=== PATIENT | female | born 1940 | race Caucasian/White ===

== ENCOUNTER 2024-02-21 18:08 | Emergency (ER) | payer OTHER, SELFPAY ==
--- NOTE | 2024-02-21 19:46 | ED.GENMED ---
History of Present Illness
General
Chief Complaint: Musculo-Skeletal Complaint
Source: patient
Exam Limitations: none
Time Seen by Provider: 02/21/24 18:38
Nursing documentation reviewed up to this point in time: agreed with
History of Present Illness
History of Present Illness:
Patient is an 83-year-old female presents to the emergency department with left ankle pain and low back pain after tripping on a hoses 3 days ago and inverting her left ankle. Patient states she has been walking on it but it has been painful.
Patient denies any numbness or paresthesias or radiation of pain. Patient is to see her back physician for injections tomorrow. Patient has had previous back surgery. Patient denies any previous
Past History
Past History
ED Past Medical History: GERD, Other (Brachial plexus neuropathy ) and Other (previous cholecystectomy, gallstone pancreatitis, chronic right brachial plexopathy, GERD)
ED Past Surgical History: Cholecystectomy, Orthopedic (Cervical and lumbar disc at the infusion, cholecystectomy ) and Other (Left hip replacement, right knee replacement x3 per ); Negative Appendectomy
Social History
Tobacco: Non-smoker
Alcohol: Occasional
Drug: None
Personal: Other (Noncontributory )
Living: with family
Employment: Employed
Family History
Family History: Negative Diabetes, Hypertension, Early CAD, Asthma or Cancer
Review of Systems
Review of Systems
All Other Systems: Not applicable
Phy Exam
Physical Exam
Physical Exam:
Physical Exam
General: mild distress, alert and appropriate, well nourished, well hydrated
HENT: Normocephalic, supple
Eyes: Clear sclera, conjuctiva without injection
Neuro: Alert and oriented x 3, CN II - XII intact, no motor focality, no cerebellar dysfunction
Skin: no rash
Psychiatric: well kept. interactive and cooperative
Extremities: No cyanosis. Good and equal peripheral pulses. Left ankle with swelling on the lateral aspect mildly. Pain with stress testing but no laxity. Achilles intact. Left foot mildly swollen but no bony tenderness
or deformity. Left knee nontender.
Musculoskeletal: Minimal lower lumbar tenderness but neurologically intact
Course
Orders/Labs/Results
Orders:
Orders
02/21/24 18:17
Ankle, left 3 view CR [CR Ankle - Left Min 3 Views ] Urgent
Comment:
Reason For Exam: pain injury
02/21/24 18:27
Lumbar Spine, 2 or 3 View [CR Lumbar Spine 2 Or 3 Views] Urgent
Comment:
Reason For Exam: pain injury
02/21/24 19:45
Donald Wrap Left-Treatment ONCE
Air Splint Left-Treatment ONCE
Oxycodone/Acetaminophen [Percocet 5/325] 1 tablet PO NOW STA
Vital Signs
Initial and Last Documented VS:
Initial Vital Signs
Pulse Resp BP Pulse Ox
85 16 148/44 97
02/21/24 19:54 02/21/24 19:54 02/21/24 19:54 02/21/24 19:54
Last Documented Vital Signs
Pulse Resp BP Pulse Ox
85 16 148/44 97
02/21/24 19:54 02/21/24 19:54 02/21/24 19:54 02/21/24 19:54
*Radiology
Radiology exam reviewed: radiology read reviewed
*Pulse Oximetry
Patient hypoxic: no
*EKG
Interpreted by ED Provider?: NA
*Associate Attorney Interpretation
Rate: Associate Attorney- N/A
*Critical Care Note
Total Time (30-74mins, 75-104mins- exclusive of procedures): Not Applicable
ED Attending Note
-
Portions of this chart may have been created with voice recognition software.� Occasional wrong word or��sound alike� substitutions may have occurred due to the inherent limitations of voice recognition software.
Discharge Plan
Departure
Patient Disposition: Home (Routine Discharge)
Date of Disposition: 02/21/24
Time of Disposition: 19:46
Patient with high blood pressure during this ER visit?: No
Condition: Fair
Discharge Problem:
Left ankle sprain, Lumbar strain
Instructions: Back Muscle Strain (DC), Ankle Sprain ED, RICE Therapy
Prescriptions:
New
oxycodone 5 mg tablet
5 mg PO Q4H PRN (Reason: Pain) Qty: 15 0RF
No Action
esomeprazole magnesium [Nexium] 20 MG capsule,delayed release(DR/EC)
20 mg PO DAILY
prednisone 5 mg tablet
2.5 mg PO DAILY
amlodipine 5 mg tablet
5 mg PO BID
gabapentin [Neurontin] 800 mg tablet
800 mg PO TID
trazodone 100 mg tablet
100 mg PO HS
ursodiol 300 mg capsule
300 mg PO BID
cyclosporine 0.05 % dropperette
1 drp BOTH EYES Q12H
apixaban 5 mg Tablet
5 mg PO BID
oxycodone [OxyContin] 10 mg tablet,oral only,ext.rel.12 hr
10 mg PO Q8H
Patient Comments:
03/16/2022: last filled 02/24/22, 90 tabs for 30 days [facility]
oxycodone 10 mg tablet
10 mg PO DAILY PRN (Reason: breakthrough pain)
Patient Comments:
03/16/2022: last filled 02/24/22, 30 tabs for 30 days from [facility]
ceftriaxone 2 gram Recon Soln
2,000 mg IV Q24H 7 Days Qty: 14 0RF
Lactobac/Bifidobac [Visbiome]
1 cap PO DAILY 14 Days Qty: 14 0RF
Referrals:
Carlos Eduardo Mena MD [Active] - Follow up in 1 week
Isidoro Marrufo MD [Family Provider] -
Activity Restrictions/Additional Instructions:
Keep appointment with your physician for your back
Discharge Date and Time
Print Language: LUXEMBOURGISH
[2024-02-21 19:54] VITALS: BP 148/44
[2024-02-21] MEDS: PERCOCET 5/325 1 TABLET PO (20:04)
== END 2024-02-21 20:48 | disposition home or self-care (01) ==
LOC: EMR 18:08
PROVIDERS: EMERGENCY PHYSICIAN Emergency Medicine; FAMILY PHYSICIAN Internal Medicine
DX: S93.402A Sprain of unspecified ligament of left ankle, initial encounter (principal); S39.012A Strain of muscle, fascia and tendon of lower back, initial encounter; W18.40XA Slipping, tripping and stumbling without falling, unspecified, initial encounter
CPT/HCPCS: 99283; 72100; 73610

== ENCOUNTER 2025-04-07 21:24 | Observation (INO) | payer OTHER, SELFPAY ==
[2025-04-07] VITALS (7 sets, daily range): BP systolic 93–113; BP diastolic 40–59; BMI 23.9; BMI 24.5
--- NOTE | 2025-04-07 18:15 | ED.GENMED ---
History of Present Illness
General
Chief Complaint: Chest Pain
Source: patient
Exam Limitations: none
Time Seen by Provider: 04/07/25 18:00
History of Present Illness
History of Present Illness:
See MDM
Past History
Past History
ED Past Medical History: GERD, Other (Brachial plexus neuropathy ) and Other (previous cholecystectomy, gallstone pancreatitis, chronic right brachial plexopathy, GERD)
ED Past Surgical History: Cholecystectomy, Orthopedic and Other
Social History
Tobacco: Non-smoker
Alcohol: Occasional
Drug: None
Personal: Other (Noncontributory )
Living: with family
Employment: Employed
Family History
Family History: Negative Diabetes, Hypertension, Early CAD, Asthma or Cancer
Phy Exam
Physical Exam
Physical Exam:
See MDM
Scores
Heart Score for Chest Pain Patients
STEMI patient?: No
History: Slightly or Non-Suspicious
ECG: Nonspecific Repolarization
Age: >/= 65 years
Risk Factors: 1 or 2 Risk Factors
Troponin: </= Normal Limit
Heart Score for Chest Pain Patients: 4
Heart Score Risk: 20.3% MACE over next 6 weeks
Course
Orders/Labs/Results
Orders:
Orders
04/07/25 17:34
EKG [Electrocardiogram (*1)] Urgent
Reason for Study: Chest Pain
EKG- Treatment ONCE
04/07/25 18:15
0.9% Sodium Chloride 1000 ml [Nss] 1,000 ml IV BOLUS
04/07/25 19:28
Complete Blood Count/With Diff Urgent
Comprehensive Metabolic Panel Urgent
Troponin I Urgent
Abnormal Lab Results
04/07/25
19:28
RBC 3.43 L 10^6/uL
(4.20-5.40)
Hgb 10.3 L g/dL
(12.0-16.0)
Hct 30.5 L %
(37.0-47.0)
Absolute Monos (auto) 0.8 H 10^3/uL
(0.1-0.6)
Lymphocytes % 19.4 L %
(20.5-51.1)
Sodium 129 L mmol/L
(135-145)
Chloride 95 L mmol/L
(98-107)
BUN 30 H mg/dl
(7-17)
Creatinine 1.2 H mg/dL
(0.6-1.0)
04/07/25 19:28
04/07/25 19:28
Vital Signs
Initial and Last Documented VS:
Initial Vital Signs
Temp Pulse Resp BP Pulse Ox
98.4 F 94 18 93/49 98
04/07/25 17:35 04/07/25 17:35 04/07/25 17:35 04/07/25 17:35 04/07/25 17:35
Last Documented Vital Signs
Temp Pulse Resp BP Pulse Ox
98.4 F 75 15 106/54 98
04/07/25 17:35 04/07/25 18:02 04/07/25 18:02 04/07/25 18:01 04/07/25 18:19
MDM/Problems Addressed
Differential Diagnosis Includes:
Note:
CHIEF COMPLAINT(S)
Dyspnea and palpitations.
HISTORY OF PRESENT ILLNESS
The patient is an 84-year-old female with a known history of atrial fibrillation. She reports experiencing shortness of breath and palpitations last week. During the episode, her pulse was noted to be elevated at 135 beats per minute. Under the
advice of her valve pipe irrigator, Dr. Vincent, she was placed on 12.5 mg of metoprolol and flecainide. This morning, her pulse was observed at 108 beats per minute. The patient has a history of paroxysmal atrial fibrillation, which she believes began
following the Moderna vaccine. The patient was recently admitted to [facility] due to a knee cap fracture after a fall. Despite her discharge, she currently experiences episodes of feeling weak and dizzy, potentially due to intermittent
atrial fibrillation and related symptoms. The discussion with the valve pipe irrigator regarding ablation was mentioned.
PAST MEDICAL AND SURGICAL HISTORY
Atrial fibrillation; knee cap fracture.
ADDITIONAL HISTORY OBTAINED FROM SOURCE OTHER THAN PATIENT
Family members mentioned logistics regarding Dr. Vincent.
EXTERNAL RECORDS REVIEWED
Recent admission to [facility] for a knee cap fracture.
CHRONIC MEDICAL CONDITIONS SIGNIFICANTLY AFFECTING CARE
Chronic conditions affecting care include atrial fibrillation.
PHYSICAL EXAM
General: Alert, no acute distress.
Skin: Warm, dry.
Head: Normocephalic, atraumatic
Neck: Appears supple, trachea midline.
Eyes, Ears, Nose, Mouth, and Throat: Moist mucous membranes. Old bruising noted around right orbit
Cardiovascular: No signs of cyanosis. Irregular rhythm
Respiratory: Respirations are non-labored.
Abdomen: Non-distended
Musculoskeletal: right leg in knee immobilizer
Neurological: No focal neurological deficit observed.
Psychiatric: Cooperative, appropriate mood and affect.
DIFFERENTIAL DIAGNOSIS
The Differential Diagnosis includes, in no particular order and is not limited to:
- Atrial fibrillation with rapid ventricular response
- Reactive airway disease
- Heart failure
- Myocardial ischemia
- Pulmonary embolism
- Aortic stenosis
- Anemia
- Electrolyte imbalance
- Infection
- Anxiety
SUMMARY OF ENCOUNTER
The patient presented with dyspnea and palpitations and a known history of atrial fibrillation. Recent history includes an elevated heart rate and fall resulting in a knee fracture. The consideration of adverse effects related to the Moderna vaccine
was discussed. The decision was made to admit her for observation due to concerns about possible recurrent episodes of atrial fibrillation, and to coordinate care with the cardiology team.
DISPOSITION
Admit
ASSESSMENT
The patient is experiencing symptoms consistent with possible intermittent atrial fibrillation and palpitations, with a recent fall-related injury. Management involves inpatient observation to allow cardiac monitoring and potential intervention if
needed.
PLAN
Admit for overnight observation; coordinate with cardiology team for evaluation and potential management adjustments.
MEDICAL DECISION MAKING
- Complexity of Problems Addressed: Chronic conditions affecting care include atrial fibrillation.
- DDx: Atrial fibrillation with rapid ventricular response, reactive airway disease, heart failure, myocardial ischemia, pulmonary embolism, aortic stenosis, anemia, electrolyte imbalance, infection, anxiety.
- Data:
- Category 1: Clinical information provided through objective findings of pulse rate and discussion of recent hospital visit for knee fracture.
- Category 2: My independent interpretation of the patients clinical condition involving historical input from family and valve pipe irrigator discussion.
- Risk:
- Prescription drug management involves the patients ongoing metoprolol and flecainide.
- Consideration of admission for monitoring due to atrial fibrillation episodes and fall risk assessment.
EKG
My independent EKG interpretation is:
- Rhythm: Atrial Fibrillation
- Heart Rate: 89 beats per minute
- [place]: Normal
- ST Segment: No elevation noted
- Intervals: Appear to be within normal limits
SUMMARY OF ENCOUNTER
Patient presented with complaints likely related to episodes of atrial fibrillation with rapid ventricular response (AFib with RVR). The patient reported generalized weakness, fatigue, and frequent falls. Given her prior history and current
symptoms, it was decided to admit her for telemetry monitoring and further evaluation.
DISPOSITION
Admit
ASSESSMENT
The patient is experiencing probable intermittent episodes of atrial fibrillation with rapid ventricular response, contributing to her generalized weakness and frequent falls.
PLAN
Admit the patient for telemetry monitoring and further workup to evaluate and manage potential recurrent atrial fibrillation episodes.
MEDICAL DECISION MAKING
-Complexity of Problems Addressed: Chronic conditions affecting care include atrial fibrillation. Differential diagnosis includes atrial fibrillation with rapid ventricular response, reactive airway disease, heart failure, myocardial ischemia,
pulmonary embolism, aortic stenosis, anemia, electrolyte imbalance, infection, and anxiety.
-Data:
Category 1: My independent interpretation of the EKG indicates atrial fibrillation with a heart rate of 89 beats per minute, normal axis, no ST segment elevation, and intervals within normal limits.
Category 2: Clinical information was obtained from an independent historian as mentioned by family members.
Category 3: Discussion of management with cardiology team regarding potential need for admission and treatment adjustment.
-Risk: Prescription drug management with ongoing metoprolol and flecainide, and the decision to escalate care with admission for monitoring due to the risk of recurrent atrial fibrillation and fall risk.
DIAGNOSIS
- Atrial Fibrillation with Rapid Ventricular Response (ICD-10: I48.91)
- Generalized Weakness (ICD-10: R53.1)
- Frequent Falls (ICD-10: R29.6)
*Pulse Oximetry
SaO2: 98
Oxygen Mode of Delivery: Room air
Patient hypoxic: no
*Critical Care Note
Total Time (30-74mins, 75-104mins- exclusive of procedures): Not Applicable
ED Attending Note
-
Portions of this chart may have been created with voice recognition software.� Occasional wrong word or��sound alike� substitutions may have occurred due to the inherent limitations of voice recognition software.
Discharge Plan
Departure
Patient Disposition: Admit
Date of Disposition: 04/07/25
Time of Disposition: 20:02
Admit to: Telemetry
Presentation/result/management discussed w/ accepting MD/DO: Hospitalist
Discharge Problem:
Heart palpitations, Weakness
Prescriptions:
No Action
esomeprazole magnesium [Nexium] 20 MG capsule,delayed release(DR/EC)
20 mg PO DAILY
prednisone 5 mg tablet
2.5 mg PO DAILY
amlodipine 5 mg tablet
5 mg PO BID
gabapentin [Neurontin] 800 mg tablet
800 mg PO TID
trazodone 100 mg tablet
100 mg PO HS
ursodiol 300 mg capsule
300 mg PO BID
cyclosporine 0.05 % dropperette
1 drp BOTH EYES Q12H
apixaban 5 mg Tablet
5 mg PO BID
oxycodone [OxyContin] 10 mg tablet,oral only,ext.rel.12 hr
10 mg PO Q8H
Patient Comments:
03/16/2022: last filled 02/24/22, 90 tabs for 30 days from [facility]
oxycodone 10 mg tablet
10 mg PO DAILY PRN (Reason: breakthrough pain)
Patient Comments:
03/16/2022: last filled 02/24/22, 30 tabs for 30 days from [facility]
ceftriaxone 2 gram Recon Soln
2,000 mg IV Q24H 7 Days Qty: 14 0RF
Lactobac/Bifidobac [Visbiome]
1 cap PO DAILY 14 Days Qty: 14 0RF
oxycodone 5 mg tablet
5 mg PO Q4H PRN (Reason: Pain) Qty: 15 0RF
metoprolol succinate 25 mg tablet extended release 24 hr
12.5 mg PO DAILY Qty: 15 0RF
Referrals:
NONE,* [Family Provider, Internal Medicine]
Interventions
Interventions:
*Risk Screen - Suicide Last Done: 04/07/25 17:35
*General Assessment Last Done: 04/07/25 17:35
*Neglect/Abuse Screening Last Done: 04/07/25 17:35
*ED COVID-19 Vaccine History Last Done: 04/07/25 17:35
*ED Influenza Vaccine History Last Done: 04/07/25 17:35
Discharge Date and Time
Print Language: TAMAZIGHT
[2025-04-07] MEDS: NSS 1000 IV (19:29)
[2025-04-07 19:40] LABS: Hematocrit 30.5 % (37.0-47.0); Hemoglobin 10.3 g/dL (12.0-16.0); Mean Corp Hgb Conc. 33.8 g/dL (33.0-37.0); Mean Corpuscular Volume 88.9 fL (81.0-99.0); Nucleated Red Blood Cells % 0 %; Platelet Count 236 10^3/uL (130-400); Red Cell Dist. Width 13.2 % (11.5-14.5)
[2025-04-07 19:53] LABS: ALT (SGPT) 21 U/L (0-35); AST (SGOT) 24 U/L (14-36); Albumin 4.2 g/dl (3.5-5.0); Alkaline Phosphatase 81 U/L (38-126); Blood Urea Nitrogen 30 mg/dl (7-17); Calcium 9.4 mg/dl (8.4-10.2); Carbon Dioxide 29 mmol/L (22-30); Chloride 95 mmol/L (98-107); Estimated Creatinine Clearance 31 ml/min; Glucose 97 mg/dl (70-99); Potassium 4.4 mmol/L (3.5-5.1); Sodium 129 mmol/L (135-145); Total Protein 6.9 g/dl (6.3-8.2); eGFR 44.91
[2025-04-07 20:03] LABS: Troponin I 0.017 ng/ml
--- NOTE | 2025-04-07 20:04 | HPS.HSE ---
Addendum entered and electronically signed by NETO Don 04/07/25 23:46:
correction, pain and immobilizer on right knee not left knee
Original Note:
Family Physician
-
Family Physician: * NONE
Chief Complaint
-
chest pain, tachycardia and dyspnea
History of Present Illness
Patient is a 84-year-old female with past medical history significant for hypertension, paroxysmal atrial fibrillation and chronic pain syndrome who presented to [facility] ED for evaluation of chest pain, tachycardia and dyspnea intermittently since last
night. Patient reports she was tachycardic in the 130s last night when she was instructed to take PRN flecainide and metoprolol and to repeat in AM if HR > 100. Patient took medication both last night and this morning and when her therapist arrived
her HR was > 110. Call was made to data governance analyst and primary care who both instructed her to go the ED for evaluation and treatment. Patient denies any recent fever, chills, cough, vomiting, constipation or diarrhea. Recent hospitalization at [facility] for
fall with fractured left patella, she reports being discharged to home a day ago and while in patient had a difficult time urinating.
Medical History
Past Medical History
Past Medical History: Reports Other
Additional Past Medical History:
Chronic Pain Syndrome
Erosive Osteoarthritis
Right Brachial Plexopathy
Lumbar DDD
Paroxysmal Atrial Fibrillation
Lung Cancer s/p Proton Therapy
Hypertension
Past Surgical History: Reports Other
Additional Past Surgical History:
Left RASHID
Right TKA
Cervical Fusion
Lumbar Fusion
PVI Ablation
appendectomy
cholecystectomy
cardiac ablation
Social History
Tobacco: Non-smoker
Alcohol: Occasional
Drug: None
Personal:
Living: With Family
Family History
Family History: Other (Mother: Pancreatic Cancer Brother: Lung Cancer Father: Premature CAD ( at 50yo))
Allergies / Home Medications
Allergies reflects when Allergies were last updated in [employer].
Home Medications with original date entered in [employer]
Allergy/Medication List:
Allergies
Allergy/AdvReac Type Severity Reaction Status Date / Time
amoxicillin Allergy Rash Verified 04/07/25 17:38
morphine (Morphine) Allergy Anaphylaxis Verified 04/07/25 17:38
pentazocine lactate (From Allergy Unknown Verified 04/07/25 17:38
[place])
Home Medications
apixaban 5 mg tablet 5 mg PO BID Blood clot prevention/tx 03/16/22
gabapentin 800 mg tablet (Neurontin) 800 mg PO TID Neurological Condition 03/16/22
oxycodone 10 mg tablet,crush resistant,extended release 12 hr (OxyContin) 10 mg PO Q8H Pain 03/16/22
trazodone 100 mg tablet 150 mg PO HS Sleep 03/16/22
ursodiol 300 mg capsule 300 mg PO BID GALLSTONE 03/16/22
colchicine 0.6 mg tablet 0.6 mg PO NOON 04/07/25
flecainide 100 mg tablet 100 mg PO Q12H PRN HR > 100 04/07/25
metoprolol succinate 25 mg tablet,extended release 24 hr 12.5 mg PO DAILY PRN HR > 100 04/07/25
oxycodone 5 mg tablet 5 mg PO Q4H PRN Moderate Pain 04/07/25
oxycodone 7.5 mg tablet,oral ONLY (not for feeding tubes) 7.5 mg PO Q4H PRN severe pain 04/07/25
tizanidine 4 mg tablet 4 mg PO HS 04/07/25
valsartan 160 mg-hydrochlorothiazide 25 mg tablet 1 tab PO DAILY 04/07/25
Review of Systems
-
History Source: Patient
Constitutional: Denies Fever or Chills
EENT: Denies Sore Throat
Respiratory: Reports Trouble Breathing (shortness of breath, intermittent with tachycardia ); Denies Cough or Hemoptysis
Cardiac: Reports Chest Pain and Palpitations; Denies Diaphoresis or Syncope
Abdomen/GI: Reports Nausea; Denies Abdominal Pain, Vomiting, Diarrhea or Constipated
: Reports Difficulty Voiding; Denies Dysuria, Frequency or Urgency
Musculoskeletal: Reports Joint Pain (left knee pain )
Skin: Denies Rash
Neurological: Reports Weakness; Denies Dizzy, Headache or Numbness
Endocrine: Denies Polyuria or Polydipsia
Physical Exam
Vital Signs
Vital Signs
Temp Pulse Resp BP Pulse Ox
98.4 F 75 15 106/54 98
04/07/25 17:35 04/07/25 18:02 04/07/25 18:02 04/07/25 18:01 04/07/25 18:19
Physical Exam
General: Well Developed, Well Nourished, No Apparent Distress, Comfortable and Conversant
HEENT: NormoCephalic, PERRLA, Nose Appears Normal and Ears Appear Normal
Respiratory: Clear and Non Labored Respirations; No Wheezes, Rales or Rhonchi
Cardiac: Irregular Rhythm and Tachycardia; No Murmur, Rub, Gallop or Peripheral Edema
GI: Soft, Non Tender, Non Distended and Normal Bowel Sounds
Musculoskeletal: No Clubbing, No Cyanosis and No Edema
Skin: IV/Catheter Site
Neuro: Awake, AO x 3 and Nonfocal/grossly intact
Psych: Calm and Intact Judgment/Insight
Laboratory Results
-
04/07/25 19:28
04/07/25 19:
Laboratory Results
Total Bilirubin 0.7 mg/dl (0.2-1.3) 04/07/25 19:
AST 24 U/L (14-36) 04/07/25 19:
ALT 21 U/L (0-35) 04/07/25 19:
Alkaline Phosphatase 81 U/L (38-126) 04/07/25 19
Troponin I 0.017 ng/ml 04/07/25 19:28
Data Reviewed
-
Medical Tests (Nuc Med, Echo, EKG etc): Report Reviewed by me (EKG: ATRIAL FIBRILLATION)
Lab Data: Labs Reviewed by me (hgb 10.3, hct 30.5, Na 129, Chloride 95, BUN 30, Creat 1.2, Est CrCl 31, eGFR 44.91)
Impression/Plan
-
IMPRESSION/PLAN:
#chest pain, tachycardia and shortness of breath 2/2 NSTEMI
#Paroxysmal Atrial Fibrillation
chest pain, tachycardia and shortness of breath intermittent since last evening
Hx cardiac ablation
hgb 10.3, hct 30.5, trop 0.017
EKG: ATRIAL FIBRILLATION
- Admit to telemetry
- Consult cardiology
- continue Eliquis
- change metoprolol from PRN to daily
- continue flecainide
#acute kidney injury
patient reports difficulty urinating this past week while hospitalized at [facility]
Na 129, Chloride 95, BUN 30, Creat 1.2, Est CrCl 31, eGFR 44.91
- IVF given in ED
- monitor BMP
#Hypertension
- continue valsartan-HCTZ hold for SBP <110
#Chronic Pain Syndrome
#Erosive Osteoarthritis
#Right Brachial Plexopathy
#Lumbar DDD
- continue gabapentin, oxycodone,
#Lung Cancer
s/p Proton Therapy
follows with [facility] every 6 months
Code status: full code
DVT prophylaxis: Eliquis
--- NOTE | 2025-04-07 20:09 | W.PN.UPDATE ---
Update Note
Progress Note Update
This note serves as an addendum to the H&P by tower crane operator Afia Carter
HPI
84F
HX Prx AF ( p Neuro Psych Sales Specialist Dr. Vincent @ [facility] )
- seen at ER
- pw Dyspnea and palpitation for 1 week
- Noted HR as hi as 135
- p Neuro Psych Sales Specialist placed on 12.5 mg of metoprolol and flecainide
- Recurrent episode of fast HR 108 this morning
- recently admitted to [facility] due to a knee cap Fx after a fall.
- feeling weak and dizzy, potentially due to intermittent atrial fibrillation and related symptoms.
- The discussion with the environmental services aide regarding ablation was mentioned.
Relevant VS
Temp Pulse Resp BP Pulse Ox
98.4 F 75 15 106/54 98
04/07/25 17:35 04/07/25 18:02 04/07/25 18:02 04/07/25 18:01 04/07/25 18:19
04/07/25
17:35 04/07/25
18:01 04/07/25
18:02
Pulse 94 75
Blood pressure 93/49 106/54
PE
Gen: NAD
HEENT: anicteric
Neck: supple
Lungs: CTA
Cor: irregular
Abdomen:�soft benign
SCIENTIFIC RESEARCH MANAGER: grossly intact
MS:no edema
Psych: appropriate mood and affect.
Relevant Data
05/15/24 05/15/24 04/07/25
14:35 14:36 19:28
Hgb 12.8 10.3 L
Sodium 136 129 L
Potassium 4.4
Chloride 95 L
BUN 19 H 30 H
Creatinine 0.9 1.2 H
eGFR > 60.00 44.91
04/07/25
19:28
Troponin I 0.017
EKG
ATRIAL FIBRILLATION
ABNORMAL ECG
WHEN COMPARED WITH ECG OF 15-May-2024 14:16,
ATRIAL FIBRILLATION HAS REPLACED SINUS RHYTHM
ASSESSMENT & PLAN
Pending Rx reconciliation
Prx AF with intermittent fast HR with palpitation
- HX PVI ablation.
- c/w Eliquis
- c/w Metoprol XL and hold if SBP < 105 or HR < 60
- improved fast HR with IV NS 1 L
- ECHO in AM ( No prior ECHO in [facility])
- [facility] card consult
[facility] suspect pre renal origin
- Trend Cr s/p 1 L NS at ER
Mild hypotension due to dehydration
Benign Hypertension
- No longer on amlodipine with hold index for SBP < 110
Chronic Pain Syndrome
OA, DJD, DDD
Right Brachial Plexopathy
- Stable.
- c/w usual outpatient pain med regimen
DVT Px: Eliquis
Full code
OBS TLM
[2025-04-07] MEDS: ELIQUIS 5 MG PO (23:34)
[2025-04-07] MEDS: DESYREL 150 MG PO (23:35)
[2025-04-07] MEDS: OXYCONTIN (CONTROLLED RELEASE) 10 MG PO (23:35)
[2025-04-07] MEDS: NEURONTIN 300 MG PO (23:52)
[2025-04-08] VITALS (7 sets, daily range): BP systolic 108–126; BP diastolic 42–66; PULSE 75–86; BMI 24.5
--- NOTE | 2025-04-08 00:17 | PTCARENOTE ---
At 23:57 pt rang call david c/o L sided CP describing it as sharp, shooting. Pt also c/o feeling slightly SOB, pulse ox 98% on RA, placed on 2L. BP 108/58 HR 80s-90 a fib on tele. EKG completed, results show A flutter. NETO Gaxiola made aware. Troponin
ordered and drawn. @ 00:10 pt states pain has subsided. Call hernandez remains within reach.
[2025-04-08 00:44] LABS: Troponin I 0.018 ng/ml
--- NOTE | 2025-04-08 03:23 | W.PN.UPDATE ---
Update Note
Progress Note Update
~ Midnight - Pt c/o�L sided CP describing it as sharp, shooting. Pt also c/o feeling slightly SOB, pulse ox 98% on RA, placed on 2L� EKG shows aflutter w/variable AV block, HR 95, similar to previous EKG, troponin 0.018 (previous 0.017). Pt stated
pain resolved on its own within 10 minutes. Pt stated this was same as what was happening at home. Cardiology previously consulted.
[2025-04-08 03:47] LABS: Blood Urea Nitrogen 27 mg/dl (7-17); Calcium 8.5 mg/dl (8.4-10.2); Carbon Dioxide 26 mmol/L (22-30); Chloride 102 mmol/L (98-107); Estimated Creatinine Clearance 41 ml/min; Glucose 112 mg/dl (70-99); Potassium 4.6 mmol/L (3.5-5.1); Sodium 130 mmol/L (135-145); eGFR > 60.00
[2025-04-08] MEDS: OXYCONTIN (CONTROLLED RELEASE) 10 MG PO ×2 (06:39→15:00)
--- NOTE | 2025-04-08 07:35 | CON.CAR ---
Addendum entered and electronically signed by Suhail Pritchett DO 04/08/25 11:01:
I saw and examined the patient.
The Reel Fed Printer's note was reviewed and I agree with the note.
Comment:
Plan:
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 She had recent fall with medical therapy for patellar fracture. She does not routinely fall. She did not have to hold her anticoagulation and was treated medically. She had recently been seen by her
director transportation and recommended as needed Metoprolol and Flecainide.
Discussed cardioversion today and Flecainide 50 mg BID and to continue until eval with her outside director transportation which is scheduled.
She is also already scheduled for an outpt stress test
Check echo
If she continues to improve after cardioversion likely dc later today.
Original Note:
Consultation
Consultation Request
Date/Time Consultation Performed: 04/08/25
Requesting Provider: Dr. Reis
Performing Provider: Helga Gaston PA-C for Dr. Pritchett
Reason for Consultation: afib
Medical History
-
Chief Complaint: palpitations
History of Present Illness:
Patient is an 84-year-old female with past medical history of paroxysmal atrial fibrillation with prior ablation 2020, maintained on Eliquis. She reports she had done well after her ablation until recently (last several months). She was seen by her
director transportation and prescribed PRN metoprolol and flecainide for HR>110. She reports she has taken these 3 times in total since prescribed, most recently several days ago (although ER notes state she was instructed to take a dose 04/06 evening and
04/07 AM which she did). She had a fall last week resulting in admission to [facility] for L patellar fracture with plan for conservative mgmt. States she has not missed any doses of eliquis. She reports since her discharge on Sunday she has had poor
appetite and not drinking well. Yesterday when her therapist came to her home her HR was >110 and call to director transportation resulted in referral to ER for evaluation. Found to be in aflutter. Was also hypotensive on arrival, improved s/p IVF. Also
reported some transient chest discomfort and states her director transportation had her scheduled for OP stress test however needed to be rescheduled to May due to her patellar fracture. She is scheduled to see [facility] on 04/14. Cardiology consulted for
evaluation.
PMH:
PAF
History of ablation 2020
Chronic OAC with eliquis
Admission to [facility] for fall with L patellar fracture, discharged 04/06/25
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
History of cervical and lumbar fusion
History of lung cancer s/p proton therapy
HTN
Past Medical History
Past Medical History: Other (in HPI)
Social History
Tobacco: Non-Smoker
Alcohol: Occasional
Drug: None
Personal:
Living: With Family
Family History
Family History: Early CAD (father) and Cancer
Allergies / Home Medications
Allergy/AdvReac Type Severity Reaction Status Date / Time
amoxicillin Allergy Rash Verified 04/07/25 17:38
morphine (Morphine) Allergy Anaphylaxis Verified 04/07/25 17:38
pentazocine lactate (From Allergy Unknown Verified 04/07/25 17:38
[place])
�Medication �Instructions �Recorded �Confirmed �Type
apixaban 5 mg tablet 5 mg PO BID Blood clot 03/16/22 04/07/25 History
prevention/tx
gabapentin 800 mg tablet 800 mg PO TID Neurological 03/16/22 04/07/25 History
(Neurontin) Condition
oxycodone 10 mg tablet,crush 10 mg PO Q8H Pain 03/16/22 04/07/25 History
resistant,extended release 12 hr
(OxyContin)
trazodone 100 mg tablet 150 mg PO HS Sleep 03/16/22 04/07/25 History
ursodiol 300 mg capsule 300 mg PO BID GALLSTONE 03/16/22 04/07/25 History
colchicine 0.6 mg tablet 0.6 mg PO NOON 04/07/25 04/07/25 History
flecainide 100 mg tablet 100 mg PO Q12H PRN HR > 100 04/07/25 04/07/25 History
metoprolol succinate 25 mg 12.5 mg PO DAILY PRN HR > 100 04/07/25 04/07/25 History
tablet,extended release 24 hr
oxycodone 5 mg tablet 5 mg PO Q4H PRN Moderate Pain 04/07/25 04/07/25 History
oxycodone 7.5 mg tablet,oral ONLY 7.5 mg PO Q4H PRN severe pain 04/07/25 04/07/25 History
(not for feeding tubes)
tizanidine 4 mg tablet 4 mg PO HS 04/07/25 04/07/25 History
valsartan 160 1 tab PO DAILY 04/07/25 04/07/25 History
mg-hydrochlorothiazide 25 mg tablet
Review of Systems
-
History Source: Patient and Family
All other systems: Negative unless noted
Physical Exam
Vital Signs
Temp Pulse Resp BP Pulse Ox
97.7 F 105 16 120/60 97
04/08/25 02:56 04/08/25 03:00 04/08/25 02:56 04/08/25 03:00 04/07/25 22:32
Lab Results
04/07/25 19:28
04/08/25 03:11
Troponin I 0.018 ng/ml 04/08/25 00:10
Physical Exam
General: No Apparent Distress and Comfortable
HEENT: Normocephalic, Anicteric and Moist Mucous Membranes
Respiratory: Clear and Non Labored Respirations
Cardiac: S1/S2 and Irregular Rhythm
GI: Soft, Non Tender, Non Distended and Normal Bowel Sounds
Musculoskeletal: No Clubbing, No Cyanosis and No Edema
Skin: Warm and Dry
Neuro: AO x 3
Impression / Plan
-
Primary Adjunct Faculty Instructor: Dr. [facility]
Assessment:
Presentation with tachycardia, palpitations
Atypical atrial flutter, initially with RVR
Hypotension, improved
Suspected dehydration
PAF
History of ablation 2020
Chronic OAC with eliquis
Admission to [facility] for fall with L patellar fracture, discharged 04/06/25
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
History of cervical and lumbar fusion
History of lung cancer s/p proton therapy
HTN
Plan:
-Patient presents with tachycardia and palpitations. Was in aflutter with RVR on arrival, HRs are now improved to 90-100s on review of tele overnight
-BPs have improved s/p IVF. she had evidence of ALEXANDER on arrival as well, improved. suspected dehydration with recent poor oral intake
-she denies missed doses of eliquis as OP and states plan is for conservative mgmt of patellar fracture
-we discussed cardioversion and she is agreeable. made NPO for CV today
-check echo
-discussed placing on standing flecainide 50mg BID for now, was taking PRN prior to admission. she is scheduled to see [facility] 04/14 for evaluation
-would avoid standing metoprolol (can continue PRN) and will also have patient hold OP valsartan/HCTZ for now given hypotension on arrival
-she reported some fleeting chest discomfort in setting of rapid HRs, now improved. trops detectable but normal in 0.[address] abnormalities noted by EKG. she is already scheduled for OP stress testing through her director transportation
-for possible DC to home post CV today
-OP follow up with Dr. Vincent
-d/w nursing. d/w via telephone
Data Reviewed
-
EKG: Tracing Personally Visualized and interpreted
Labs: Labs Reviewed by me
Old Records: Reviewed
[2025-04-08] MEDS: NEURONTIN 300 MG PO (09:34)
[2025-04-08] MEDS: ELIQUIS 5 MG PO (09:34)
[2025-04-08] MEDS: ACTIGALL 300 MG PO (09:34)
[2025-04-08] MEDS: TAMBOCOR 50 MG PO (09:34)
--- NOTE | 2025-04-08 12:21 | W.PN.HOSP.TC ---
Today's Communication/Plan
-
CV today
rehaB/CM
flecanide
hold bp meds
Assessment / Plan
Assessment / Plan
#Paroxysmal Atrial Fibrillation
#Atrial flutter with RVR
#Hx cardiac ablation
#Chest pain likely secondary to palpitation
-Plan for CV today. monitor symptoms post procedure.
-Plan to continue flecainide and changed to standing dose. DC metoprolol standing dose.
-Continue with Eliquis
-Patient has appointment with [facility] sealing machine operator next week
-Echocardiogram pending
-Op stress test per cards
#acute kidney injury Likely secondary dehydration while on valsartan/hydrochlorothiazide
- IVF given in ED
- monitor BMP. Na improved. DC hctz. Cr downtrended.
#Hypertension
- DC HCTZ with hyponatermia
- can restart valsartan if needed
#Chronic Pain Syndrome
#Erosive Osteoarthritis
#Right Brachial Plexopathy
#Lumbar DDD
- continue gabapentin, oxycodone,
#Lung Cancer
s/p Proton Therapy
follows with [facility] every 6 months
#Patellar fracture
immobilizer on right knee
Code status: full code
DVT prophylaxis: Eliquis
Anticipated Discharge: Within 24 hours
Subjective/Interval History
-
Date of Service: April 08, 2025
overnight events noted
cp free currently
remains in afib
Objective Data
-
Labs:
Laboratory Results
04/08/25
03:11
Sodium 130 L
Potassium 4.6
Chloride 102
Carbon Dioxide 26
BUN 27 H
Creatinine 0.9
Glucose 112 H
Calcium 8.5
Vital Signs:
Vital Signs
Temp Pulse Resp BP Pulse Ox
98.1 F 101 16 108/66 97
04/08/25 12:19 04/08/25 07:46 04/08/25 02:56 04/08/25 07:46 04/07/25 22:32
Physical Exam
-
General: Well Developed and No Apparent Distress
HEENT: Normocephalic, Atraumatic and Moist Mucous Membranes
Respiratory: Clear to Auscultation
Cardiac: S1/S2, Irregular Rhythm and Tachycardic; Negative Murmur, Rub or Gallop
GI: Soft, Nontender, Nondistended and Normal Bowel Sounds; Negative Organomegaly
Rectal: Deferred by Provider
Musculoskeletal: No Clubbing, No Cyanosis and No Edema
Skin: Negative Rash
Neuro: Awake, No Motor Deficits and Nonfocal/Grossly Intact
Psych: Calm
[2025-04-08] MEDS: COLCHICINE 0.6 MG PO (13:00)
--- NOTE | 2025-04-08 13:24 | W.PN.UPDATE ---
Update Note
Progress Note Update
cardioversion successful. patient feeling well and ambulating to bathroom without issues. ok for DC from cardiac standpoint with EP follow up with [facility] as scheduled 04/14. d/w hospitalist via TT. d/w nursing. d/w patient and at bedside
--- NOTE | 2025-04-08 13:57 | W.DCSUMMARY ---
Discharge Summary
Discharge Data
Date of Admission: 04/07/25
Date of Discharge: 04/08/25
-
Pending Results: No
Hospital Course
84 yo F with past medical history of atrial fibrillation status post ablation, chronic coagulopathy on Eliquis, patella fracture, cervical and lumbar fusion history, history of lung cancer status post proton therapy, hypertension who is presenting
with complaint of chest pain & palpitation. Patient was found to be in atrial flutter/fibrillation with rapid ventricular response. Patient was also found to be hypotensive which improved status post IV fluid resuscitation. Patient had mild
hyponatremia which improved. Patient had mild ALEXANDER which resolved with IV fluid resuscitation and discontinuation of valsartan and hydrochlorothiazide. Patient had episode of chest pain which resolved. Troponins were trended. Patient has
outpatient stress test however needed to be rescheduled due to patella fracture. Patient underwent cardiology evaluation. Patient underwent cardioversion and postprocedure remained in normal sinus rhythm. Cardiology recommended patient to be
started on flecainide 50 mg every 12 and continue with Toprol as needed regimen. Patient to follow-up with her primary dividend deposit entry clerk at [facility].
Discharge Plan
-
Patient Disposition: Home (Routine Discharge)
Discharge Diagnosis/Procedures: Chest pain palpitation secondary to atrial fibrillation with rapid ventricular response Status post cardioversion
Mild hyponatremia
Acute kidney injury
Mild hypotension
Condition: Fair
Diet: Regular
Activity: As tolerated
Driving Restrictions: No driving
Blood Work: BMP in 1 week via primary doctor.
Referrals:
Isidoro Marrufo MD [Family Provider] - in less than 1 week
Additional Discharge Medication Instructions: Valsartan-HCTZ was discontinued
Prescriptions:
New
flecainide 50 mg Tablet
50 mg PO Q12 Qty: 60 0RF
Continued
gabapentin [Neurontin] 800 mg tablet
800 mg PO TID
trazodone 100 mg tablet
150 mg PO HS
ursodiol 300 mg capsule
300 mg PO BID
apixaban 5 mg Tablet
5 mg PO BID
oxycodone [OxyContin] 10 mg tablet,oral only,ext.rel.12 hr
10 mg PO Q8H
Patient Comments:
03/16/2022: last filled 02/24/22, 90 tabs for 30 days from [facility]
tizanidine 4 mg Tablet
4 mg PO HS
colchicine 0.6 mg Tablet
0.6 mg PO NOON
oxycodone 7.5 mg Tablet, Oral Only
7.5 mg PO Q4H PRN (Reason: severe pain)
metoprolol succinate 25 mg tablet extended release 24 hr
12.5 mg PO DAILY PRN (Reason: HR > 100)
oxycodone 5 mg tablet
5 mg PO Q4H PRN (Reason: Moderate Pain)
Discontinued
flecainide 100 mg Tablet
100 mg PO Q12H PRN (Reason: HR > 100)
valsartan-hydrochlorothiazide 160-25 mg Tablet
1 tab PO DAILY
Discharge Orders:
Discharge Patient (As Directed); Ordered 04/08/25
Ordered By: Armand Teague
Care Plan Goals
Care Plan Goals:
Problem: Readiness for enhanced knowledge related to diagnosis and treatment plan
Goal: Understand your diagnosis and treatment plan needs, including medications if applicable.
Instructions: Know your diagnosis, underlying causes and treatment plan options, including medications if applicable. Consult with your health care team to learn about your diagnosis and treatment plan, including medications if applicable.
Discharge Date and Time
Print Language: GREEK
--- NOTE | 2025-04-08 14:35 | CM ---
spoke to pt in room, she is prev indep, lives at [facility] in an [facility]. she recently Fx her kneecap and was about to start [facility] before coming in to [facility]. referral re-faxed to [facility] to start services after dc. , pt given
obs letter.
--- NOTE | 2025-04-08 15:40 | PTCARENOTE ---
Pt was discharged to home with family. Discharge instructions were reviewed with pt. classroom monitor and piv removed prior to discharge. Pt was escorted out via wheelchair by PCT.
== END 2025-04-08 15:48 | disposition home health service (06) ==
LOC: IVU 21:24
PROVIDERS: Nurse Practitioner Family; Student in an Organized Health Care Education/Training Program; ADMITTING PHYSICIAN Internal Medicine; ATTENDING PHYSICIAN Hospitalist; EMERGENCY PHYSICIAN Student in an Organized Health Care Education/Training Program; FAMILY PHYSICIAN Internal Medicine; OTHER PHYSICIAN Nuclear Medicine Nuclear Cardiology
DX: I48.0 Paroxysmal atrial fibrillation (principal); R07.9 Chest pain, unspecified; N17.9 Acute kidney failure, unspecified; E87.1 Hypo-osmolality and hyponatremia; I95.89 Other hypotension; K21.9 Gastro-esophageal reflux disease without esophagitis; G54.0 Brachial plexus disorders; R00.2 Palpitations; R06.00 Dyspnea, unspecified; R29.6 Repeated falls; R53.1 Weakness; E86.0 Dehydration; I48.4 Atypical atrial flutter; I44.30 Unspecified atrioventricular block; R00.1 Bradycardia, unspecified; G89.4 Chronic pain syndrome; R00.0 Tachycardia, unspecified; I10 Essential (primary) hypertension; M15.4 Erosive (osteo)arthritis; S82.092D Other fracture of left patella, subsequent encounter for closed fracture with routine healing; W19.XXXD Unspecified fall, subsequent encounter; Z85.118 Personal history of other malignant neoplasm of bronchus and lung; Z98.1 Arthrodesis status; Z96.651 Presence of right artificial knee joint; Z96.642 Presence of left artificial hip joint; Z90.49 Acquired absence of other specified parts of digestive tract; Z92.3 Personal history of irradiation; Z91.81 History of falling; Z79.52 Long term (current) use of systemic steroids; Z79.01 Long term (current) use of anticoagulants; Z79.891 Long term (current) use of opiate analgesic; Z80.1 Family history of malignant neoplasm of trachea, bronchus and lung; Z82.49 Family history of ischemic heart disease and other diseases of the circulatory system; Z80.0 Family history of malignant neoplasm of digestive organs; Z88.5 Allergy status to narcotic agent; Z88.0 Allergy status to penicillin; Z88.8 Allergy status to other drugs, medicaments and biological substances; Z79.899 Other long term (current) drug therapy
CPT/HCPCS: 80048; 80053; 84484; 85025; 92960; 93005; 93306; 96360; 97163; 99285; G0378